=== PATIENT | female | born 1970 | race Caucasian/White ===

== ENCOUNTER → 2020-08-11 | Outpatient (CLI) | payer OTHER ==
[~2020-08-11] MED LIST: BUPR150T2 PO; DHEA PO; DIAZ2 PO; HYDACE5 PO; NAPR500 PO
== END | disposition home or self-care (01) ==
LOC: LAB SHORT 15:35 → LAB 15:35
DX: N90.89 Other specified noninflammatory disorders of vulva and perineum (principal)
CPT/HCPCS: 87070; 87205

== ENCOUNTER → 2021-03-02 | Outpatient (CLI) | payer OTHER | END | disposition home or self-care (01) | LOC: LAB 07:54 → LAB SHORT 07:54 | DX: B35.8 Other dermatophytoses (principal) | CPT/HCPCS: 88305; 88312 ==

== ENCOUNTER → 2021-06-08 | Outpatient (CLI) | payer OTHER | END | disposition home or self-care (01) | LOC: LAB 11:00 → LAB SHORT 11:00 | DX: B37.2 Candidiasis of skin and nail (principal); B35.4 Tinea corporis | CPT/HCPCS: 87102 ==